=== PATIENT | male | born 1975 | race Caucasian/White ===

== ENCOUNTER 2020-11-21 16:35 | Inpatient (IN) ==
[2020-11-21] MEDS ORDERED: Isovue-370 500 ML BOTTLE IVP ONE (17:19)
[2020-11-21] MEDS ORDERED: 0.9 % Sodium Chloride 1,000 ML IVC ONE (17:19)
[2020-11-21 18:19] LABS: Basophils % 0.3 %; Eosinophils % 0.1 %; Hematocrit 44.9 % (37.5-50.1); Hemoglobin 15.3 g/dL (12.9-16.9); Immature Granulocytes % 0.8 % (0-4); Lymphocytes # 1.5 K/mcL (0.6-4.6); Lymphocytes % 9.3 %; Mean Corpuscular HGB Conc 34.1 g/dL (31.6-35.5); Mean Corpuscular Hemoglobin 29.8 pg (28.0-33.3); Mean Corpuscular Volume 87.4 fL (83.0-100.0); Monocytes # 1.1 K/mcL (0.0-1.3); Monocytes % 6.8 %; Neutrophils # 13.1 K/mcL (1.6-8.9); Platelet Count 291 K/mcL (140-400); Red Blood Count 5.14 M/mcL (4.19-5.50); Red Cell Distribution Width 12.7 % (11.5-14.5); Segmented Neutrophils % 82.7 %; White Blood Count 15.8 K/mcL (4.3-11.1)
[2020-11-21 18:28] LABS: INR 1.1; Prothrombin Time 12.1 Seconds (9.4-12.1)
[2020-11-21 18:44] LABS: Alanine Aminotransferase 20 Units/L (7-52); Albumin 4.2 g/dL (3.5-5.7); Albumin/Globulin Ratio 1.6 (1.1-2.2); Alkaline Phosphatase 51 Units/L (34-104); Aspartate Amino Transferase 16 Units/L (13-39); BUN/Creatinine Ratio 21 (6-26); Bilirubin,Indirect 0.4 mg/dL (0.0-1.0); Bilirubin,Total 0.4 mg/dL (0.3-1.0); Blood Urea Nitrogen 19 mg/dL (6-20); Calcium 9.8 mg/dL (8.6-10.3); Carbon Dioxide 24 mEq/L (23-29); Chloride 98 mEq/L (98-107); Globulin 2.7 g/dL (2.4-3.5); Glucose 263 mg/dL (70-105); Osmolality,Calculated 285 (280-300); Potassium 3.8 mEq/L (3.5-5.1); Sodium 132 mEq/L (136-145); Total Protein 6.9 g/dL (6.4-8.9); Troponin I 0.24 ng/mL (< 0.04); eGFR For African Americans > 60 (> 60); eGFR For Non-African Americans > 60 (> 60)
[2020-11-21] MEDS ORDERED: *HR* Heparin 5,000 UNIT/ML VIAL IVP ONE (18:46)
[2020-11-21] MEDS ORDERED: *HR* Heparin 5,000 UNIT/ML VIAL IVP PRN (18:46)
[2020-11-21] MEDS: Heparin 25,000UNIT/250ML 1/2NS 25,000 UNIT/250 ML IV.SOLN IVC SCH (19:17)
[2020-11-21] MEDS ORDERED: Naloxone 0.4 MG/ML INJ IVP PRN (20:03)
[2020-11-21] MEDS ORDERED: Ondansetron 4 MG/2 ML VIAL IVP PRN (20:03)
[2020-11-21] MEDS ORDERED: Perflutren Lipid Microsphere 1.3 ML in 0.9 % Sodium Chloride 8.7 ML IVP PRN (20:05)
[2020-11-21] MEDS ORDERED: Ipratropium/Albuterol Neb 3 ML IH PRN (20:06)
[2020-11-21] MEDS ORDERED: Dextrose Gel 15 GM/37.5 ML TUBE PO PRN ×2 (20:07)
[2020-11-21] MEDS ORDERED: D5% in Water 1,000 ML IVC PRN (20:07)
[2020-11-21] MEDS ORDERED: *HR* Dextrose 50 % in Water (Syg) 50 ML SYRINGE IVP PRN (20:07)
[2020-11-21 20:34] LABS: Adenovirus Not Detected (Not Detect); Coronavirus 229E Not Detected (Not Detect); Coronavirus HKU1 Not Detected (Not Detect); Coronavirus NL63 Not Detected (Not Detect); Coronavirus OC43 Not Detected (Not Detect); Human Metapneumovirus Not Detected (Not Detect); Human Rhinovirus/Enterovirus Not Detected (Not Detect); Influenza A Subtype 2009 H1 Not Detected (Not Detect); SARS-CoV-2 Not Detected (Not Detect)
[2020-11-21 20:35] LABS: Bordetella Pertussis Not Detected (Not Detect); Chlamydophila pneumoniae Not Detected (Not Detect); Influenza B Not Detected (Not Detect); Mycoplasma pneumoniae Not Detected (Not Detect); Parainfluenza Virus 1 Not Detected (Not Detect); Parainfluenza Virus 2 Not Detected (Not Detect); Parainfluenza Virus 3 Not Detected (Not Detect); Parainfluenza Virus 4 Not Detected (Not Detect); Respiratory Syncytial Virus Not Detected (Not Detect)
[2020-11-21] MEDS: Insulin LISPRO 300 UNITS/3 ML VIAL SUBQ SCH ×2 (22:41)
[2020-11-21] MEDS ORDERED: NON-FORMULARY MEDICATION 1 EACH EACH (Promethazine/Dextromethorphan [Promethazine-Dm Syrup PO PRN (22:57)
[2020-11-21] MEDS: OXcarbazepine 150 MG TABLET PO SCH (23:25)
[2020-11-22 02:06] LABS: Basophils % 0.2 %; Eosinophils % 0.2 %; Hematocrit 43.9 % (37.5-50.1); Hemoglobin 14.9 g/dL (12.9-16.9); Immature Granulocytes % 0.4 % (0-4); Lymphocytes # 1.8 K/mcL (0.6-4.6); Lymphocytes % 13.7 %; Mean Corpuscular HGB Conc 33.9 g/dL (31.6-35.5); Mean Corpuscular Hemoglobin 29.9 pg (28.0-33.3); Mean Corpuscular Volume 88.2 fL (83.0-100.0); Mean Platelet Volume 9.1 fL (9.4-12.4); Monocytes # 0.6 K/mcL (0.0-1.3); Monocytes % 4.8 %; Neutrophils # 10.3 K/mcL (1.6-8.9); Platelet Count 266 K/mcL (140-400); Red Blood Count 4.98 M/mcL (4.19-5.50); Red Cell Distribution Width 12.8 % (11.5-14.5); Segmented Neutrophils % 80.7 %; White Blood Count 12.8 K/mcL (4.3-11.1)
[2020-11-22] MEDS: *HR* Heparin 5,000 UNIT/ML VIAL IVP PRN ×2 (02:38→10:31)
[2020-11-22 02:56] LABS: BUN/Creatinine Ratio 26 (6-26); Blood Urea Nitrogen 22 mg/dL (6-20); Calcium 9.1 mg/dL (8.6-10.3); Carbon Dioxide 18 mEq/L (23-29); Chloride 102 mEq/L (98-107); Glucose 194 mg/dL (70-105); Magnesium 1.8 mg/dL (1.6-2.6); Osmolality,Calculated 287 (280-300); Potassium 3.8 mEq/L (3.5-5.1); Sodium 134 mEq/L (136-145); eGFR For African Americans > 60 (> 60); eGFR For Non-African Americans > 60 (> 60)
[2020-11-22 04:04] LABS: Bilirubin,Urine Negative (Negative); Blood,Urine Negative (Negative); Clarity,Urine Clear (Clear); Color,Urine Light-Yellow (Yellow); Glucose,Urine (UA) >=1000 mg/dL (Normal); Ketones,Urine Trace mg/dL (Negative); Leukocyte Esterase,Urine Negative (Negative); Mucus,Urine Few per lpf (None-Few); Nitrite,Urine Negative (Negative); PH,Urine 6.5 pH Units (5.0-8.0); Protein,Urine Trace mg/dL (Neg-Trace); RBC,Urine 0-3 per hpf (0-3); Specific Gravity,Urine > 1.030 (1.010-1.025); Urobilinogen,Urine Normal (Normal); WBC,Urine 0-3 per hpf (0-3)
[2020-11-22 04:59] LABS: Estimated Average Glucose 128 mg/dl; Hemoglobin A1C 6.1 %
[2020-11-22] MEDS: Insulin LISPRO 300 UNITS/3 ML VIAL SUBQ SCH ×4 (07:30→19:44)
[2020-11-22] MEDS: Gabapentin 400 MG CAPSULE PO SCH (09:00)
[2020-11-22] MEDS: OXcarbazepine 150 MG TABLET PO SCH ×2 (09:00→19:52)
[2020-11-22] MEDS: Isosorbide MONOnitrate (24 HR) 30 MG TAB.ER.24H PO SCH (11:59)
[2020-11-22] MEDS: Aspirin 81 MG TAB.CHEW PO SCH (11:59)
[2020-11-22] MEDS: Heparin 25,000UNIT/250ML 1/2NS 25,000 UNIT/250 ML IV.SOLN IVC SCH (15:53)
[2020-11-23 06:17] LABS: Hematocrit 45.7 % (37.5-50.1); Hemoglobin 15.1 g/dL (12.9-16.9); Mean Corpuscular Hemoglobin 29.5 pg (28.0-33.3); Mean Corpuscular Volume 89.3 fL (83.0-100.0); Mean Platelet Volume 8.8 fL (9.4-12.4); Platelet Count 244 K/mcL (140-400); Red Blood Count 5.12 M/mcL (4.19-5.50); Red Cell Distribution Width 12.9 % (11.5-14.5); White Blood Count 11.7 K/mcL (4.3-11.1)
[2020-11-23 06:40] LABS: BUN/Creatinine Ratio 23 (6-26); Blood Urea Nitrogen 23 mg/dL (6-20); Calcium 9.2 mg/dL (8.6-10.3); Carbon Dioxide 27 mEq/L (23-29); Chloride 104 mEq/L (98-107); Glucose 117 mg/dL (70-105); Osmolality,Calculated 291 (280-300); Sodium 138 mEq/L (136-145); eGFR For African Americans > 60 (> 60); eGFR For Non-African Americans > 60 (> 60)
[2020-11-23] MEDS: Heparin 25,000UNIT/250ML 1/2NS 25,000 UNIT/250 ML IV.SOLN IVC SCH ×2 (06:42→22:04)
[2020-11-23] MEDS ORDERED: *HR* LORazepam 0.5 MG TABLET PO PRN (07:25)
[2020-11-23] MEDS: Insulin LISPRO 300 UNITS/3 ML VIAL SUBQ SCH ×4 (07:45→19:54)
[2020-11-23] MEDS: Aspirin 81 MG TAB.CHEW PO SCH (08:35)
[2020-11-23] MEDS: Gabapentin 400 MG CAPSULE PO SCH (08:36)
[2020-11-23] MEDS: OXcarbazepine 150 MG TABLET PO SCH ×2 (08:36→19:48)
[2020-11-23] MEDS: Isosorbide MONOnitrate (24 HR) 30 MG TAB.ER.24H PO SCH (08:36)
[2020-11-23] MEDS: amLODIPine 5 MG TABLET PO SCH (08:37)
[2020-11-23] MEDS ORDERED: NON-FORMULARY MEDICATION 1 EACH EACH (Losartan/Hydrochlorothiazide [Losartan-Hctz 100-25 M PO SCH (09:00)
[2020-11-23] MEDS ORDERED: NON-FORMULARY MEDICATION 1 EACH EACH (Omeprazole [Prilosec] 40 MG Capsule.Dr) PO SCH (09:00)
[2020-11-23] MEDS ORDERED: LACOSAMIDE 200 MG PO SCH (09:00)
[2020-11-23] MEDS ORDERED: OXCARBAZEPINE 300 MG PO SCH (09:00)
[2020-11-23] MEDS ORDERED: NON-FORMULARY MEDICATION 1 EACH EACH (Gabapentin [Neurontin] 800 MG Tablet) PO SCH (09:00)
[2020-11-23] MEDS ORDERED: Isosorbide MONOnitrate (24 HR) 30 MG TAB.ER.24H PO ONE (18:54)
[2020-11-24 07:25] LABS: INR 1.1; Prothrombin Time 12.2 Seconds (9.4-12.1)
[2020-11-24 07:59] LABS: Hematocrit 44.8 % (37.5-50.1); Hemoglobin 15.1 g/dL (12.9-16.9); Mean Corpuscular HGB Conc 33.7 g/dL (31.6-35.5); Mean Corpuscular Hemoglobin 29.7 pg (28.0-33.3); Mean Corpuscular Volume 88.2 fL (83.0-100.0); Mean Platelet Volume 8.9 fL (9.4-12.4); Platelet Count 226 K/mcL (140-400); Red Blood Count 5.08 M/mcL (4.19-5.50); Red Cell Distribution Width 12.7 % (11.5-14.5); White Blood Count 9.4 K/mcL (4.3-11.1)
[2020-11-24 08:12] LABS: BUN/Creatinine Ratio 18 (6-26); Blood Urea Nitrogen 17 mg/dL (6-20); Carbon Dioxide 26 mEq/L (23-29); Chloride 103 mEq/L (98-107); Glucose 115 mg/dL (70-105); Osmolality,Calculated 286 (280-300); Potassium 3.5 mEq/L (3.5-5.1); Sodium 137 mEq/L (136-145); eGFR For African Americans > 60 (> 60); eGFR For Non-African Americans > 60 (> 60)
[2020-11-24] MEDS ORDERED: *HR* FentaNYL (PF) 100 MCG/2 ML VIAL ONE (09:35)
[2020-11-24] MEDS ORDERED: *HR* Midazolam HCl 2 MG/2 ML VIAL ONE (09:36)
[2020-11-24] MEDS ORDERED: *HR* Heparin 10,000 UNIT/10 ML VIAL ONE (09:36)
[2020-11-24] MEDS ORDERED: Nitroglycerin 1,000 MCG/5 ML VIAL IV ONE (09:36)
[2020-11-24] MEDS ORDERED: Heparin 1,000 UNITS/500 mL 500 ML ONE (09:36)
[2020-11-24] MEDS ORDERED: ISOVUE-370 200 ML INFUS..BTL ONE (09:36)
[2020-11-24] MEDS: Insulin LISPRO 300 UNITS/3 ML VIAL SUBQ SCH ×4 (09:46→20:40)
[2020-11-24] MEDS: amLODIPine 5 MG TABLET PO SCH (09:53)
[2020-11-24] MEDS: Aspirin 81 MG TAB.CHEW PO SCH (09:53)
[2020-11-24] MEDS: OXcarbazepine 150 MG TABLET PO SCH ×2 (09:53→20:32)
[2020-11-24] MEDS: Gabapentin 400 MG CAPSULE PO SCH (09:53)
[2020-11-24] MEDS: Isosorbide MONOnitrate (24 HR) 30 MG TAB.ER.24H PO SCH (09:54)
[2020-11-24] MEDS ORDERED: 0.9 % Sodium Chloride 1,000 ML ONE (10:02)
[2020-11-24] MEDS: 0.9 % Sodium Chloride 1,000 ML IVC SCH (13:27)
[2020-11-24] MEDS: Acetaminophen 325 MG TABLET PO PRN (13:30)
[2020-11-24] MEDS: Heparin 25,000UNIT/250ML 1/2NS 25,000 UNIT/250 ML IV.SOLN IVC SCH (20:33)
[2020-11-25] MEDS: 0.9 % Sodium Chloride 1,000 ML IVC SCH ×4 (00:47→20:04)
[2020-11-25 06:28] LABS: Hematocrit 45.4 % (37.5-50.1); Hemoglobin 15.5 g/dL (12.9-16.9)
[2020-11-25 07:01] LABS: BUN/Creatinine Ratio 14 (6-26); Blood Urea Nitrogen 14 mg/dL (6-20); Calcium 9.1 mg/dL (8.6-10.3); Carbon Dioxide 27 mEq/L (23-29); Chloride 102 mEq/L (98-107); Glucose 136 mg/dL (70-105); Magnesium 2.1 mg/dL (1.6-2.6); Osmolality,Calculated 287 (280-300); Phosphorous 3.2 mg/dL (2.7-4.5); Potassium 3.7 mEq/L (3.5-5.1); Sodium 137 mEq/L (136-145); eGFR For African Americans > 60 (> 60); eGFR For Non-African Americans > 60 (> 60)
[2020-11-25] MEDS: Insulin LISPRO 300 UNITS/3 ML VIAL SUBQ SCH ×4 (09:26→20:24)
[2020-11-25] MEDS: amLODIPine 5 MG TABLET PO SCH (09:58)
[2020-11-25] MEDS: OXcarbazepine 150 MG TABLET PO SCH ×2 (09:59→20:24)
[2020-11-25] MEDS: Aspirin 81 MG TAB.CHEW PO SCH (09:59)
[2020-11-25] MEDS: Gabapentin 400 MG CAPSULE PO SCH (09:59)
[2020-11-25] MEDS: Isosorbide MONOnitrate (24 HR) 30 MG TAB.ER.24H PO SCH (10:01)
[2020-11-25] MEDS: Heparin 25,000UNIT/250ML 1/2NS 25,000 UNIT/250 ML IV.SOLN IVC SCH (12:01)
[2020-11-25] MEDS: Acetaminophen 325 MG TABLET PO PRN (13:37)
[2020-11-25] MEDS ORDERED: Heparin 1,000 UNITS/500 mL 500 ML ONE ×2 (14:10→15:17)
[2020-11-25] MEDS ORDERED: 0.9 % Sodium Chloride 1,000 ML ONE (14:10)
[2020-11-25] MEDS ORDERED: *HR* FentaNYL (PF) 100 MCG/2 ML VIAL ONE (14:10)
[2020-11-25] MEDS ORDERED: *HR* Heparin 10,000 UNIT/10 ML VIAL ONE (14:10)
[2020-11-25] MEDS ORDERED: *HR* Midazolam HCl 2 MG/2 ML VIAL ONE ×2 (14:10→14:42)
[2020-11-25] MEDS ORDERED: ISOVUE-370 200 ML INFUS..BTL ONE (14:11)
[2020-11-25] MEDS ORDERED: Nitroglycerin 1,000 MCG/5 ML VIAL IV ONE (14:18)
[2020-11-25 16:19] VITALS: O2SAT 96
[2020-11-25] MEDS: carvediloL 6.25 MG TABLET PO SCH (20:05)
[2020-11-26] MEDS: 0.9 % Sodium Chloride 1,000 ML IVC SCH ×2 (02:04→05:51)
[2020-11-26 08:02] LABS: Hematocrit 45.5 % (37.5-50.1); Hemoglobin 15.5 g/dL (12.9-16.9)
[2020-11-26 08:20] LABS: BUN/Creatinine Ratio 13 (6-26); Blood Urea Nitrogen 12 mg/dL (6-20); eGFR For African Americans > 60 (> 60); eGFR For Non-African Americans > 60 (> 60)
[2020-11-26 08:38] VITALS: BP 163/88; PULSE 66; TEMP 99
[2020-11-26] MEDS: OXcarbazepine 150 MG TABLET PO SCH (09:30)
[2020-11-26] MEDS: Isosorbide MONOnitrate (24 HR) 30 MG TAB.ER.24H PO SCH (09:31)
[2020-11-26] MEDS: carvediloL 6.25 MG TABLET PO SCH (09:32)
[2020-11-26] MEDS: Aspirin 81 MG TAB.CHEW PO SCH (09:37)
[2020-11-26] MEDS: Gabapentin 400 MG CAPSULE PO SCH (09:38)
[2020-11-26] MEDS: amLODIPine 5 MG TABLET PO SCH (09:40)
[2020-11-26] MEDS: Insulin LISPRO 300 UNITS/3 ML VIAL SUBQ SCH (09:46)
== END 2020-11-26 14:11 | disposition home or self-care (01) | DRG 247 ==
LOC: EMEROOARM 16:35 → 3BNU 16:35 → SUATTDRO 11-22 15:42
PROVIDERS: ADMIT Student in an Organized Health Care Education/Training Program; ATTEND Internal Medicine